=== PATIENT | female | born 1985 | race Caucasian/White ===

== ENCOUNTER 2018-05-27 12:47 | Observation (INO) ==
[2018-05-27] MEDS ORDERED: Morphine Inj 4 MG/ML Vial IV.PUSH ONE ×2 (14:45→21:39)
[2018-05-27] MEDS ORDERED: Vancomycin Inj 1,000 MG in Sodium Chlor 0.9% Inj 250 ML IV.SIG ONE (14:45)
--- NOTE | 2018-05-27 14:48 | ED ---
HPI General Chief complaint: Skin/Abscess/Foreign Body Stated complaint: skin Time Seen by Provider: 05/27/18 14:18 History of Present Illness HPI narrative: 32-year-old female with a history of IV drug use presents to the emergency department for evaluation of fever, body aches and right forearm abscess. Patient states that she has had fever and body aches for the past 5 days. States that today when she woke up her fever was 102.7 F and she took aspirin at around 10 AM. States that she has had the abscess for the last 3 days which has been getting larger and more painful over the last 3 days. States that today the swelling significantly worsened and she is having pain with movement of her elbow. She states she has had a history of septic arthritis in the past and is concerned that this is happening again. Aggravating factors include movement, palpation and IV drug use. Denies any alleviating factors. Denies . No other complaints. Related Data Home Medications Medication Instructions Recorded Confirmed No Known Home Medications 05/27/18 05/27/18 Allergies Allergy/AdvReac Type Severity Reaction Status Date / Time propoxyphene Allergy Severe Hives Verified 05/27/18 13:29 Review of Systems ROS: all other systems reviewed are negative PMFSH Medical History Medical History No significant past medical history (Acute) Surgical History Surgical History History of (Acute) History of appendectomy (Acute) History of cholecystectomy (Acute) History of incision and drainage (Acute) History of right oophorectomy (Acute) History of salpingo-oophorectomy (Acute) Family History Family History Other Coronary artery disease Diabetes mellitus Social History Social History Substance History: Active Abuse Second Hand Smoke Exposure: Yes Smoking Status: Heavy tobacco smoker Tobacco Type: Cigarettes How Often Do You Have a Drink Containing Alcohol: Never Recent Travel in [facility] within the Last 8 Weeks: No Recent Out of Country Travel within the Last 8 Weeks: No Substance Abuse Detail Heroin: Substance Use Status: Early Remission Route Used Substance Abuse: Intravenously Immunization History Tetanus Immunization: <5 Years Exam Narrative Exam Narrative: GENERAL: Well-nourished and well-developed pleasant patient in no acute distress who is nontoxic appearing. SKIN: Warm and dry. HEAD: Normocephalic and atraumatic. EYES: No injection, drainage, or hyphema noted. PERRLA. EOMI. ENT: No nasal drainage noted. Oropharynx is clear. NECK: Supple and the trachea is midline. CARDIOVASCULAR: Regular rate and rhythm. RESPIRATORY: Breath sounds are equal bilaterally with no accessory muscle use, wheezing, rhonchi, or crackles. GASTROINTESTINAL: Abdomen is soft, non-tender, and nondistended. No hepatosplenomegaly. MUSCULOSKELETAL: Large fluctuant mass to right proximal forearm with erythema extending to mid forearm and to elbow. Tenderness to palpation of right elbow with painful range of motion. No lymphangitis. No obvious deformities, cyanosis, or ecchymosis is present throughout the upper and lower extremities. Patient has full range of motion in all other extremities without any signs of neurovascular compromise. Distal pulses are 2+ throughout. NEUROLOGICAL: Awake, alert, and oriented. Normal speech and gait. Cranial nerves are grossly intact. Course Initial Documented Vital Signs Temperature 98.4 F 05/27/18 13:10 Pulse Rate 98 H 05/27/18 13:10 Respiratory Rate 18 05/27/18 13:10 Blood Pressure 115/72 05/27/18 13:10 Pulse Oximetry 99 05/27/18 13:10 Last Documented Vital Signs Temperature 99.1 F 05/28/18 16:00 Pulse Rate 65 05/28/18 16:00 Respiratory Rate 16 05/28/18 16:00 Blood Pressure 114/58 L 05/28/18 16:00 Pulse Oximetry 96 05/28/18 16:00 Medical Decision Making [facility] Narrative Medical decision making narrative: 32-year-old female with a history of IV drug use presents to the emergency department for evaluation of right forearm/elbow abscess and fevers for 5 days. Patient is afebrile here in the emergency department. She is tachycardic with a heart rate of 98 bpm. Patient is a large area of abscess and cellulitis to the right forearm. IV access obtained, labs have been drawn and sent. Patient placed on cardiac telemetry and pulse oximetry monitoring. Patient administered 1 g IV vancomycin, morphine 4 mg IV and Zofran 4 mg IV. Patient initially seen in fast track pod and transferred care to medical pod. I spoke with Dr. Tilley who accepts care of patient in transfer. Patient had been signed out to me by PRAFUL, please see PA notes for further details. Lab work does indicate some underlying sepsis. IV antibiotics have been given. CAT scan is showing a large deep abscess in the arm. Case was discussed with hand, Dr. Currie. Case was also discussed with Dr. Hughes for admission. Medical Screen Exam Complete: Yes Emergency Medical Condition: Yes Differential Diagnosis Differential Diagnosis: Sepsis versus abscess versus septic joint versus IV drug use Lab Data Lab results reviewed: Yes I reviewed the patient's lab results. Result diagrams: 05/28/18 06:35 05/28/18 06:35 POC Results POC Urine Results Negative Lab Results 05/27/18 05/27/18 05/27/18 Range/Units 15:50 15:50 15:50 WBC 10.2 (4.0-11.0) th/mm3 RBC 4.35 (4.00-5.30) mil/mm3 Hgb 11.6 (11.6-15.3) gm/dL Hct 34.1 L (35.0-46.0) % MCV 78.3 L (80.0-100.0) fL MCH 26.7 L (27.0-34.0) pg MCHC 34.1 (32.0-36.0) % RDW 17.1 (11.6-17.2) % Plt Count 167 (150-450) th/mm3 MPV 8.7 (7.0-11.0) fL Prelim Diff (Auto) Neut % (Auto) 75.9 H (16.0-70.0) % Lymph % (Auto) 15.9 (9.0-44.0) % [place] % (Auto) 7.1 (0.0-8.0) % Eos % (Auto) 0.1 (0.0-4.0) % Baso % (Auto) 1.0 (0.0-2.0) % Neut # (Auto) 7.8 H (1.8-7.7) th/mm3 Lymph # (Auto) 1.6 (1.0-4.8) th/mm3 [place] # (Auto) 0.7 (0.0-0.9) th/mm3 Eos # (Auto) 0.0 (0.0-0.4) th/mm3 Baso # (Auto) 0.1 (0.0-0.2) th/mm3 WBC Differential . Diff Scan Differential Comment Auto diff final Platelet Estimate (Normal) Platelet Morphology (Normal) ESR (0-20) mm/hr Sodium 136 (136-145) meq/L Potassium 4.7 (3.5-5.1) meq/L Chloride 103 (98-107) meq/L Carbon Dioxide 28.0 (21.0-32.0) meq/L Anion Gap 5 (5-15) meq/L BUN 7 (7-18) mg/dL Creatinine 0.78 (0.50-1.00) mg/dL Estimated GFR 85 L (>89) mL/min Random Glucose 87 (74-106) mg/dL Lactic Acid 0.9 (0.4-2.0) mmol/L Calcium 8.3 L (8.5-10.1) mg/dL Total Bilirubin 0.8 (0.2-1.0) mg/dL AST 25 (15-37) U/L ALT 13 (10-53) U/L Alkaline Phosphatase 71 (45-117) U/L C-Reactive Protein 11.30 H (0.00-0.30) mg/dL Total Protein 7.7 (6.4-8.2) g/dL Albumin 3.2 L (3.4-5.0) g/dL 05/27/18 05/28/18 05/28/18 Range/Units 15:50 06:35 06:35 WBC 7.2 (4.0-11.0) th/mm3 RBC 3.89 L (4.00-5.30) mil/mm3 Hgb 10.3 L (11.6-15.3) gm/dL Hct 31.2 L (35.0-46.0) % MCV 80.3 (80.0-100.0) fL MCH 26.5 L (27.0-34.0) pg MCHC 33.0 (32.0-36.0) % RDW 17.0 (11.6-17.2) % Plt Count 150 (150-450) th/mm3 MPV 8.8 (7.0-11.0) fL Prelim Diff (Auto) Slide review pending Neut % (Auto) 73.8 H (16.0-70.0) % Lymph % (Auto) 15.1 (9.0-44.0) % [place] % (Auto) 10.3 H (0.0-8.0) % Eos % (Auto) 0.5 (0.0-4.0) % Baso % (Auto) 0.3 (0.0-2.0) % Neut # (Auto) 5.3 (1.8-7.7) th/mm3 Lymph # (Auto) 1.1 (1.0-4.8) th/mm3 [place] # (Auto) 0.7 (0.0-0.9) th/mm3 Eos # (Auto) 0.0 (0.0-0.4) th/mm3 Baso # (Auto) 0.0 (0.0-0.2) th/mm3 WBC Differential . Diff Scan Auto diff confirmed Differential Comment . Platelet Estimate Normal (Normal) Platelet Morphology Enlarged H (Normal) ESR 57 H (0-20) mm/hr Sodium 139 (136-145) meq/L Potassium 3.9 D (3.5-5.1) meq/L Chloride 107 (98-107) meq/L Carbon Dioxide 24.4 (21.0-32.0) meq/L Anion Gap 8 (5-15) meq/L BUN 13 (7-18) mg/dL Creatinine 0.83 (0.50-1.00) mg/dL Estimated GFR 79 L (>89) mL/min Random Glucose 104 (74-106) mg/dL Lactic Acid (0.4-2.0) mmol/L Calcium 7.7 L (8.5-10.1) mg/dL Total Bilirubin (0.2-1.0) mg/dL AST (15-37) U/L ALT (10-53) U/L Alkaline Phosphatase (45-117) U/L C-Reactive Protein (0.00-0.30) mg/dL Total Protein (6.4-8.2) g/dL Albumin (3.4-5.0) g/dL Imaging Data Attestation: I personally reviewed and interpreted this imaging study as follows : Radiologist's impression: Chest X-Ray 05/27/18 14:45 CONCLUSION: Negative examination. Elbow CT 05/27/18 14:45 CONCLUSION: 1. Complex fluid collection but represent an abscess in the proximal medial soft tissues of the forearm. 2. No areas of bony destruction are seen. 3. Small 0.5 cm loose body in the elbow joint. Discharge Plan Discharge Disposition Patient Disposition: ED Admit(ED Internal Use Only) Discharge Condition Condition: Stable Discharge Order Discharge Orders: ED Use Only Admit Order (Routine); Ordered 05/27/18 Ordered By: Basim Tilley Discharge Details Anticipated Discharge Date: 05/27/18 Diagnosis: Abscess of elbow, Cellulitis of arm, right Physicians Team ED Provider: Basim Tilley ED Midlevel Provider: Celina Marquez Primary Care Provider: Primary Care Patrick,Addie Attending Provider: Carol Goff Other Providers: Donaldo Currie Status ED Status: Left Department Discharge Information Discharge Date/Time: 05/27/18 22:14
--- NOTE | 2018-05-27 15:35 | XR ---
EXAM DATE: 05/27/2018 3:31 PM EST AGE/SEX: 32 years / Female INDICATIONS: Fever. CLINICAL DATA: This is the patient's initial encounter. Patient reports that signs and symptoms have been present for 1 day and indicates a pain score of 6/10. MEDICAL/SURGICAL HISTORY: Hypertension. . Appendectomy. Cholecystectomy. section.Right oopherectomy COMPARISON: [facility] [place], CHEST SINGLE AP, 06/26/2015. . FINDINGS: A single AP view of the chest demonstrates the lungs to be symmetrically aerated without evidence of mass, infiltrate or effusion. The cardiomediastinal contours are unremarkable. Osseous structures a re intact. CONCLUSION: Negative examination. Electronically signed by: Abundio Vila MD Board Certified Radiologist 05/27/2018 3:34 PM EST
[2018-05-27 16:22] LABS: Baso # (Auto) 0.1 th/mm3 (0.0-0.2); Eos % (Auto) 0.1 % (0.0-4.0); Hematocrit 34.1 % (35.0-46.0); Hemoglobin 11.6 gm/dL (11.6-15.3); Lymph # (Auto) 1.6 th/mm3 (1.0-4.8); Lymph % (Auto) 15.9 % (9.0-44.0); Mean Corpuscular HGB Conc 34.1 % (32.0-36.0); Mean Corpuscular Hemoglobin 26.7 pg (27.0-34.0); Mean Corpuscular Volume 78.3 fL (80.0-100.0); Mean Platelet Volume 8.7 fL (7.0-11.0); Mono # (Auto) 0.7 th/mm3 (0.0-0.9); Mono % (Auto) 7.1 % (0.0-8.0); Neut # (Auto) 7.8 th/mm3 (1.8-7.7); Neut % (Auto) 75.9 % (16.0-70.0); Platelet Count 167 th/mm3 (150-450); Red Blood Count 4.35 mil/mm3 (4.00-5.30); Red Cell Distribution Width 17.1 % (11.6-17.2); White Blood Count 10.2 th/mm3 (4.0-11.0)
[2018-05-27 16:39] LABS: Alanine Aminotransferase 13 U/L (10-53); Albumin 3.2 g/dL (3.4-5.0); Alkaline Phosphatase 71 U/L (45-117); Anion Gap 5 meq/L (5-15); Aspartate Aminotransferase 25 U/L (15-37); Blood Urea Nitrogen 7 mg/dL (7-18); Calcium 8.3 mg/dL (8.5-10.1); Chloride 103 meq/L (98-107); Glomerular Filtration Rate 85 mL/min (>89); Glucose,Random 87 mg/dL (74-106); Sodium 136 meq/L (136-145); Total Protein 7.7 g/dL (6.4-8.2)
[2018-05-27 16:40] LABS: Potassium 4.7 meq/L (3.5-5.1)
--- NOTE | 2018-05-27 18:26 | CT ---
EXAM DATE: 05/27/2018 6:03 PM EST AGE/SEX: 32 years / Female INDICATIONS: Right elbow swelling and redness CLINICAL DATA: This is the patient's initial encounter. Patient reports that signs and symptoms have been present for 1 day and indicates a pain score of 4/10. MEDICAL/SURGICAL HISTORY: Cardiovascular disease. None. RADIATION DOSE: 21.11 CTDI (mGy) COMPARISON: . TECHNIQUE: Multiple contiguous axial images were acquired using a multirow detector CT scanner after intravenous administration of 71 ml Omnipaque 350 (iohexol) nonionic water-soluble contrast as a si ngle exam dose.. Multiplanar reconstruction was performed in the sagittal and coronal planes. Using automated exposure control and adjustment of the mA and/or kV according to patient size, radiation d ose was kept as low as reasonably achievable to obtain optimal diagnostic quality images. DICOM form at image data is available electronically for review and comparison. FINDINGS: Bones: The bony structures about the elbow are in normal alignment. The distal humerus and proximal radius and ulna are intact. No fracture is seen. Joints: There is a small 0.5 cm small bony density seen posterior to the distal humerus and the olec ranon fossa region. Soft Tissues: There is a multiloculated fluid collection seen in the proximal medial soft tissues of the upper arm measuring approximately 3.2 x 4.0 by 6.7 cm in length. There is induration and edema t hroughout the subcutaneous fat at the proximal forearm and elbow region. Other: No foreign bodies seen. Post Contrast: No abnormal areas of enhancement are seen in the marrow or soft tissues. CONCLUSION: 1. Complex fluid collection but represent an abscess in the proximal medial soft tissues of the fore arm. 2. No areas of bony destruction are seen. 3. Small 0.5 cm loose body in the elbow joint. Electronically signed by: Jasper Murray MD Board Certified Radiologist 05/27/2018 6:24 PM EST
[2018-05-27] MEDS ORDERED: Vancomycin Consult Pharmacy OTHER PRN (20:20)
[2018-05-27] MEDS ORDERED: Acetaminophen 325 MG Tablet PO PRN (20:22)
[2018-05-27] MEDS ORDERED: Bisacodyl 10 MG Supp RECTAL PRN (20:22)
[2018-05-27] MEDS: Sod Chloride 0.9% Inj 1,000 ML IV.CONT SCH (21:05)
[2018-05-27] MEDS: Piperacil/Tazo 3.375 GM Premix 3.375 GM/50 ML PIGGYBACK IV.SIG SCH (21:06)
--- NOTE | 2018-05-27 21:12 | P.HP ---
History of Present Illness Service: [facility] Primary Care Physician: No Primary Care Physician History of Present Illness: 32-year-old female with a past medical history significant for IV drug abuse ( last use on 03/30/18) and a history of abscesses presents to the emergency department for the evaluation of a right forearm/elbow abscess. The patient reports she has had a fever for approximately 1 week and has been feeling weak and fatigued. Approximately 3 days ago she developed right elbow and forearm pain and an abscess began to form. The area is large, indurated and warm to the touch. She denies any chest pain or shortness of breath. No abdominal pain. No nausea/vomiting/diarrhea. No focal neurologic deficits. Review of Systems All other systems reviewed negative except as stated in HPI [facility] - History History Provided By: Patient - Medical History Medical History: Medical History (Last Updated 05/27/18 @ 21:05 by Corie Hughes MD) No significant past medical history - Surgical History Surgical History: Surgical History (Last Updated 05/27/18 @ 21:06 by Corie Hughes MD) History of History of appendectomy History of cholecystectomy History of incision and drainage History of right oophorectomy History of salpingo-oophorectomy - Family History Family History: Family History (Last Updated 05/27/18 @ 21:06 by Corie Hughes MD) Other Coronary artery disease Diabetes mellitus - Social History I have reviewed the patient's Social History: Yes - Tobacco History Tobacco Use In Past 30 Days: Yes Smoking Status: Current every day smoker Tobacco Type: Cigarettes - Alcohol History How Often Do You Have a Drink Containing Alcohol: Never - Substance Use History Substance History: Past History - Substance Use Type Heroin Status: Early Remission Route Used: Intravenously - Travel History Recent Travel in the [place] Within the Last 8 Weeks: No Recent Travel Out of the Country Within the Last 8 Weeks: No - Immunization History Tetanus Immunization: <5 Years Medications and Allergies Active Medications: Active Medications Acetaminophen (Tylenol) 650 mg PO Q4H PRN PRN Reason: Temp > 100.4 Al Hydroxide/Mg Hydroxide (Milk Of Magnesia Liq) 30 ml PO Q12H PRN PRN Reason: Mild Constipation Bisacodyl (Dulcolax Supp) 10 mg RECTAL DAILY PRN PRN Reason: SEVERE CONSITIPATION Sodium Chloride (Ns Inj) 1,000 mls @ 100 mls/hr IV.CONT .Q10H ADAIR Piperacillin/Tazobactam/Dextrose (Zosyn 3.375 Gm Premix) 3.375 gm in 50 mls @ 100 mls/hr IV.SIG Q6H ADAIR Vancomycin HCl 2,000 mg/ (Sodium Chloride) 520 mls @ 250 mls/hr IV.SIG Q12H ADAIR Lactulose (Lactulose Liq) 30 ml PO DAILY PRN PRN Reason: SEVERE CONSITIPATION Miscellaneous Information ([facility] Ordered Lab Info) 0 each OTHER ONCE ONE Stop: 05/29/18 00:46 Ondansetron HCl (Zofran Inj) 4 mg IV.PUSH Q6H PRN PRN Reason: NAUSEA OR VOMITING Pharmacy Profile Note (Vancomycin Consult Pharmacy) 1 each OTHER UNSCH PRN PRN Reason: Pharmacy to dose Sennosides (Senokot) 17.2 mg PO Q12H PRN PRN Reason: Moderate Constipation Sodium Chloride (Ns Flush) 2 ml IV.FLUSH BID ADAIR Sodium Chloride (Ns Flush) 2 ml IV.FLUSH PRN PRN PRN Reason: FLUSH AFTER USING IV ACCESS Allergies Allergy/AdvReac Type Severity Reaction Status Date / Time propoxyphene Allergy Severe Hives Verified 05/27/18 13:29 Home Medications Medication Instructions Recorded Confirmed Type No Known Home Medications 05/27/18 05/27/18 History Exam Vital signs: Vital Signs 05/27/18 13:10 05/27/18 18:11 05/27/18 18:12 Temperature 98.4 F Pulse Rate 98 H 90 Respiratory Rate 18 Blood Pressure 115/72 Pulse Oximetry 99 93 L 05/27/18 18:34 Temperature Pulse Rate 84 Respiratory Rate 18 Blood Pressure 125/57 L Pulse Oximetry 94 L Intake & Output 05/27/18 05/27/18 05/28/18 06:59 18:59 06:59 Intake Total 250 / 250 Balance 250 / 250 Weight 97.522 kg Intake: IV 250 / 250 Vancomycin Inj 1,000 MG In NS 250 / 250 Inj 250 ML @ 250 mls/hr IV.SIG ONCE ONE Rx#:[id number] Narrative: Gen.: No acute distress Head: Normocephalic. Atraumatic. EENT: Pupils equal round and reactive to light. Nose without drainage. Airway intact. Throat without injection. Cardiovascular: Regular rate and rhythm. No murmurs, rubs or gallops. Respiratory: Lungs clear to auscultation bilaterally. No wheezes or rhonchi. Abdomen: Soft, nontender, nondistended. No peritoneal signs. Musculoskeletal: No gross deformities. No edema. Skin: 6 x 4 cm erythematous and indurated area that is fluctuant and warm to the touch Neuro: Sensory and motor grossly intact. Cranial nerves II through XII grossly intact. Results - Labs CBC & Chem 7: 05/27/18 15:50 05/27/18 15:50 Labs: Laboratory Results - last 24 hr 05/27/18 05/27/18 05/27/18 15:50 15:50 15:50 WBC 10.2 RBC 4.35 Hgb 11.6 Hct 34.1 L MCV 78.3 L MCH 26.7 L MCHC 34.1 RDW 17.1 Plt Count 167 MPV 8.7 Neut % (Auto) 75.9 H Lymph % (Auto) 15.9 [place] % (Auto) 7.1 Eos % (Auto) 0.1 Baso % (Auto) 1.0 Neut # (Auto) 7.8 H Lymph # (Auto) 1.6 [place] # (Auto) 0.7 Eos # (Auto) 0.0 Baso # (Auto) 0.1 WBC Differential . Differential Comment Auto diff final ESR Sodium 136 Potassium 4.7 Chloride 103 Carbon Dioxide 28.0 Anion Gap 5 BUN 7 Creatinine 0.78 Estimated GFR 85 L Random Glucose 87 Lactic Acid 0.9 Calcium 8.3 L Total Bilirubin 0.8 AST 25 ALT 13 Alkaline Phosphatase 71 C-Reactive Protein 11.30 H Total Protein 7.7 Albumin 3.2 L 05/27/18 15:50 WBC RBC Hgb Hct MCV MCH MCHC RDW Plt Count MPV Neut % (Auto) Lymph % (Auto) [place] % (Auto) Eos % (Auto) Baso % (Auto) Neut # (Auto) Lymph # (Auto) [place] # (Auto) Eos # (Auto) Baso # (Auto) WBC Differential Differential Comment ESR 57 H Sodium Potassium Chloride Carbon Dioxide Anion Gap BUN Creatinine Estimated GFR Random Glucose Lactic Acid Calcium Total Bilirubin AST ALT Alkaline Phosphatase C-Reactive Protein Total Protein Albumin - Imaging Impressions Chest X-Ray 12/19/18 14:45 CONCLUSION: Negative examination. Elbow CT 05/27/18 14:45 CONCLUSION: 1. Complex fluid collection but represent an abscess in the proximal medial soft tissues of the forearm. 2. No areas of bony destruction are seen. 3. Small 0.5 cm loose body in the elbow joint. Caprini VTE Risk Assessment Caprini VTE Risk Assessment: No/Low Risk (score <= 1) Caprini Risk Assessment Model: Point Value = 1 Point Value = 2 Point Value = 3 Point Value = 5 Age 41-60 Minor surgery BMI > 25 kg/m2 Swollen legs Varicose veins or History of unexplained or recurrent spontaneous Oral contraceptives or hormone replacement Sepsis (< 1 month) Serious lung disease, including pneumonia (< 1 month) Abnormal pulmonary function Acute myocardial infarction Congestive heart failure (< 1 month) History of inflammatory bowel disease Medical patient at bed rest Age 61-74 Arthroscopic surgery Major open surgery (> 45 min) Laparoscopic surgery (> 45 min) Malignancy Confined to bed (> 72 hours) Immobilizing plaster cast Central venous access Age >= 75 History of VTE Family history of VTE Factor V Leiden Prothrombin [id number] Lupus anticoagulant Anticardiolipin antibodies Elevated serum homocysteine Heparin-induced thrombocytopenia Other congenital or acquired thrombophilia Stroke (< 1 month) Elective arthroplasty Hip, pelvis, or leg fracture Acute spinal cord injury (< 1 month) Prophylaxis Regimen: Total Risk Factor Score Risk Level Prophylaxis Regimen 0-1 Low Early ambulation 2 Moderate Order ONE of the following: *Sequential Compression Device (SCD) *Heparin 5000 units SQ BID 3-4 Higher Order ONE of the following medications: *Heparin 5000 units SQ TID *Enoxaparin/Lovenox 40 mg SQ daily (WT < 150 kg, CrCl > 30 mL/min) *Enoxaparin/Lovenox 30 mg SQ daily (WT < 150 kg, CrCl > 10-29 mL/min) *Enoxaparin/Lovenox 30 mg SQ BID (WT < 150 kg, CrCl > 30 mL/min) AND/OR *Sequential Compression Device (SCD) 5 or more Highest Order ONE of the following medications: *Heparin 5000 units SQ TID (Preferred with Epidurals) *Enoxaparin/Lovenox 40 mg SQ daily (WT < 150 kg, CrCl > 30 mL/min) *Enoxaparin/Lovenox 30 mg SQ daily (WT < 150 kg, CrCl > 10-29 mL/min) *Enoxaparin/Lovenox 30 mg SQ BID (WT < 150 kg, CrCl > 30 mL/min) AND *Sequential Compression Device (SCD) Assessment and Plan - Plan Assessment/plan: 1. Right forearm abscess Elbow CT significant for complex fluid collection in the proximal medial soft tissues of the forearm without areas of bony destruction Hand surgery consulted, appreciate assistance Plan for I&D in the emergency department Vancomycin/Zosyn Cultures pending 2. History of IV drug abuse Per patient, last use of IV heroin was 03/30/18 Caution with narcotic medications Toradol for pain FEN N.p.o. Electrolytes: Monitor and replete as needed NS at 100 cc/hour
--- NOTE | 2018-05-27 21:43 | P.CON ---
History of Present Illness Service: Hand Surgery Consult date: 05/20/18 Reason for Consult: Right forearm abscess Primary Care Provider: No Primary Care Physician Chief Complaint: Right forearm abscess History of Present Illness: 32-year-old female who presented with a several day history of worsening right forearm abscess. Patient reports that she has a history of IV drug abuse, and that over the last several days to a week, the right forearm is been getting progressively larger, more red, more painful, more swollen. Except as noted in the HPI review of systems negative to presenting complaint Family history noncontributory to presenting complaint Allergies listed as propoxyphene Medication list reviewed Social history positive for IVDA Medical history/surgical history History of History of appendectomy History of cholecystectomy History of incision and drainage History of right oophorectomy History of salpingo-oophorectomy PMFSH - History History Provided By: Patient - Medical History Medical History: Medical History (Last Updated 05/27/18 @ 21:05 by Corie Hughes MD) No significant past medical history - Surgical History Surgical History: Surgical History (Last Updated 05/27/18 @ 21:06 by Corie Hughes MD) History of History of appendectomy History of cholecystectomy History of incision and drainage History of right oophorectomy History of salpingo-oophorectomy - Family History Family History: Family History (Last Updated 05/27/18 @ 21:06 by Corie Hughes MD) Other Coronary artery disease Diabetes mellitus - Tobacco History Tobacco Use In Past 30 Days: Yes Smoking Status: Current every day smoker Tobacco Type: Cigarettes - Alcohol History How Often Do You Have a Drink Containing Alcohol: Never - Substance Use History Substance History: Past History - Substance Use Type Heroin Status: Early Remission Route Used: Intravenously - Travel History Recent Travel in the [place] Within the Last 8 Weeks: No Recent Travel Out of the Country Within the Last 8 Weeks: No - Immunization History Tetanus Immunization: <5 Years Medications and Allergies Active Medications: Active Medications Acetaminophen (Tylenol) 650 mg PO Q4H PRN PRN Reason: Temp > 100.4 Al Hydroxide/Mg Hydroxide (Milk Of Magnesia Liq) 30 ml PO Q12H PRN PRN Reason: Mild Constipation Bisacodyl (Dulcolax Supp) 10 mg RECTAL DAILY PRN PRN Reason: SEVERE CONSITIPATION Sodium Chloride (Ns Inj) 1,000 mls @ 100 mls/hr IV.CONT .Q10H [facility] Last Admin: 05/27/18 21:05 Dose: 100 mls/hr Piperacillin/Tazobactam/Dextrose (Zosyn 3.375 Gm Premix) 3.375 gm in 50 mls @ 100 mls/hr IV.SIG Q6H [facility] Last Admin: 05/27/18 21:06 Dose: 100 mls/hr Vancomycin HCl 2,000 mg/ (Sodium Chloride) 520 mls @ 250 mls/hr IV.SIG Q12H [facility] Ketorolac Tromethamine (Toradol Inj) 30 mg IV.PUSH Q6H PRN PRN Reason: pain 6-10 Stop: 06/01/18 21:10 Lactulose (Lactulose Liq) 30 ml PO DAILY PRN PRN Reason: SEVERE CONSITIPATION Miscellaneous Information ([facility] Ordered Lab Info) 0 each OTHER ONCE ONE Stop: 05/29/18 00:46 Ondansetron HCl (Zofran Inj) 4 mg IV.PUSH Q6H PRN PRN Reason: NAUSEA OR VOMITING Pharmacy Profile Note (Vancomycin Consult Pharmacy) 1 each OTHER UNSCH PRN PRN Reason: Pharmacy to dose Sennosides (Senokot) 17.2 mg PO Q12H PRN PRN Reason: Moderate Constipation Sodium Chloride (Ns Flush) 2 ml IV.FLUSH BID [facility] Last Admin: 05/27/18 21:05 Dose: Not Given Sodium Chloride (Ns Flush) 2 ml IV.FLUSH PRN PRN PRN Reason: FLUSH AFTER USING IV ACCESS Zolpidem Tartrate (Ambien) 10 mg PO HS PRN PRN Reason: insomnia Allergies Allergy/AdvReac Type Severity Reaction Status Date / Time propoxyphene Allergy Severe Hives Verified 05/27/18 13:29 Home Medications Medication Instructions Recorded Confirmed Type No Known Home Medications 05/27/18 05/27/18 History Physical Exam Vital signs: Vital Signs 05/27/18 13:10 05/27/18 18:11 05/27/18 18:12 Temperature 98.4 F Pulse Rate 98 H 90 Respiratory Rate 18 Blood Pressure 115/72 Pulse Oximetry 99 93 L 05/27/18 18:34 Temperature Pulse Rate 84 Respiratory Rate 18 Blood Pressure 125/57 L Pulse Oximetry 94 L Intake & Output 05/27/18 05/27/18 05/28/18 06:59 18:59 06:59 Intake Total 250 / 250 Balance 250 / 250 Weight 97.522 kg Intake: IV 250 / 250 Vancomycin Inj 1,000 MG In NS 250 / 250 Inj 250 ML @ 250 mls/hr IV.SIG ONCE ONE Rx#:[id number] Narrative: Patient appears anxious, alert and oriented x3, moist mucous membranes PERRLA skin without rash respirations nonlabored gait within normal limits digits warm well perfused Right proximal volar forearm with over 6 cm area of fluctuance surrounded by erythema, blanching, extending to her mid forearm and mid upper arm Exquisitely tender Elbow CT images personally reviewed by me showing a roughly 6 cm area of fluid collection consistent with abscess Results - Labs CBC & Chem 7: 05/28/18 06:35 05/28/18 06:35 Labs: Laboratory Results - last 24 hr 05/27/18 05/27/18 05/27/18 15:50 15:50 15:50 WBC 10.2 RBC 4.35 Hgb 11.6 Hct 34.1 L MCV 78.3 L MCH 26.7 L MCHC 34.1 RDW 17.1 Plt Count 167 MPV 8.7 Neut % (Auto) 75.9 H Lymph % (Auto) 15.9 [place] % (Auto) 7.1 Eos % (Auto) 0.1 Baso % (Auto) 1.0 Neut # (Auto) 7.8 H Lymph # (Auto) 1.6 [place] # (Auto) 0.7 Eos # (Auto) 0.0 Baso # (Auto) 0.1 WBC Differential . Differential Comment Auto diff final ESR Sodium 136 Potassium 4.7 Chloride 103 Carbon Dioxide 28.0 Anion Gap 5 BUN 7 Creatinine 0.78 Estimated GFR 85 L Random Glucose 87 Lactic Acid 0.9 Calcium 8.3 L Total Bilirubin 0.8 AST 25 ALT 13 Alkaline Phosphatase 71 C-Reactive Protein 11.30 H Total Protein 7.7 Albumin 3.2 L 05/27/18 15:50 WBC RBC Hgb Hct MCV MCH MCHC RDW Plt Count MPV Neut % (Auto) Lymph % (Auto) [place] % (Auto) Eos % (Auto) Baso % (Auto) Neut # (Auto) Lymph # (Auto) [place] # (Auto) Eos # (Auto) Baso # (Auto) WBC Differential Differential Comment ESR 57 H Sodium Potassium Chloride Carbon Dioxide Anion Gap BUN Creatinine Estimated GFR Random Glucose Lactic Acid Calcium Total Bilirubin AST ALT Alkaline Phosphatase C-Reactive Protein Total Protein Albumin - Imaging Impressions Chest X-Ray 05/27/18 14:45 CONCLUSION: Negative examination. Elbow CT 05/27/18 14:45 CONCLUSION: 1. Complex fluid collection but represent an abscess in the proximal medial soft tissues of the forearm. 2. No areas of bony destruction are seen. 3. Small 0.5 cm loose body in the elbow joint. Assessment and Plan - Assessment (1) Abscess of forearm, right Code(s): L02.413 - Cutaneous abscess of right upper limb Status: Acute - Plan 32-year-old female with severe right upper extremity cellulitis and large abscess extending to the deep fascia Risk benefits alternative treatments discussed All questions answered and the patient expressed understanding Patient elected to assume the risks of incision and drainage of the above abscess Informed consent obtained Under sterile conditions, at the bedside, 50 mL of 1% lidocaine with epinephrine was instilled in a field block A 4 cm longitudinally oriented incision was made through the skin over the area of fluctuance Blunt superficial spreading with suture scissors allowed the abscess cavity to be entered just deep to dermis All septations lysed with gentle digital exploration Cultures were sent x2 All purulence was expressed Betadine soaked gauze was instilled into the abscess cavity and covered with a dry dressing Well-tolerated Nursing instructed that above packing to be removed the following morning, and replaced with an iodoform wick change daily Antibiotics per primary Please call with questions
[2018-05-27] MEDS: Ketorolac Inj 30 MG/ML (IVP) Vial IV.PUSH PRN (22:55)
[2018-05-28] MEDS: Vancomycin Inj 2,000 MG in Sodium Chlor 0.9% Inj 500 ML IV.SIG SCH ×2 (00:44→13:28)
[2018-05-28] MEDS: Piperacil/Tazo 3.375 GM Premix 3.375 GM/50 ML PIGGYBACK IV.SIG SCH ×4 (03:02→20:58)
[2018-05-28] MEDS: Sod Chloride 0.9% Inj 1,000 ML IV.CONT SCH ×3 (03:35→18:30)
[2018-05-28 07:33] LABS: Baso % (Auto) 0.3 % (0.0-2.0); Eos % (Auto) 0.5 % (0.0-4.0); Hematocrit 31.2 % (35.0-46.0); Hemoglobin 10.3 gm/dL (11.6-15.3); Lymph # (Auto) 1.1 th/mm3 (1.0-4.8); Lymph % (Auto) 15.1 % (9.0-44.0); Mean Corpuscular Hemoglobin 26.5 pg (27.0-34.0); Mean Corpuscular Volume 80.3 fL (80.0-100.0); Mean Platelet Volume 8.8 fL (7.0-11.0); Mono # (Auto) 0.7 th/mm3 (0.0-0.9); Mono % (Auto) 10.3 % (0.0-8.0); Neut # (Auto) 5.3 th/mm3 (1.8-7.7); Neut % (Auto) 73.8 % (16.0-70.0); Red Blood Count 3.89 mil/mm3 (4.00-5.30); White Blood Count 7.2 th/mm3 (4.0-11.0)
[2018-05-28 07:49] LABS: Calcium 7.7 mg/dL (8.5-10.1); Carbon Dioxide 24.4 meq/L (21.0-32.0); Potassium 3.9 meq/L (3.5-5.1)
[2018-05-28 08:19] LABS: Platelet Count 150 th/mm3 (150-450)
[2018-05-28 08:20] LABS: Platelet Estimate Normal (Normal)
[2018-05-28] MEDS: Ketorolac Inj 30 MG/ML (IVP) Vial IV.PUSH PRN (08:37)
--- NOTE | 2018-05-28 10:46 | P.PNIM ---
Subjective Interval history: 32yo f w ivda admitted with cellulitis and RUE abscess s/p I/ D in ER pt seen and examined doing ok, co pain , and nausea, no sob, no cp Physical Exam Vital signs: Last Vital Signs Temp 100.4 F H 05/28/18 07:41 Pulse 86 05/28/18 07:41 Resp 18 05/28/18 07:41 BP 127/71 05/28/18 07:41 Pulse Ox 95 05/28/18 07:41 Intake & Output 05/26/18 05/27/18 05/28/18 05/29/18 06:59 06:59 06:59 06:59 Intake Total 1870 / 1870 1050 / 1050 Balance 1870 / 1870 1050 / 1050 Weight 97.522 kg AAox3 nad heart s1s2 reg lungs clear no wrr abd soft nondt pos bs ext R elbow w bandage, edema, drainage Results Labs CBC & Chem 7: 05/28/18 06:35 05/28/18 06:35 Labs: Microbiology 05/27/18 22:30 Abscess - Arm Gram Stain - Final Imaging Imaging: Impressions Chest X-Ray 05/27/18 14:45 CONCLUSION: Negative examination. Elbow CT 05/27/18 14:45 CONCLUSION: 1. Complex fluid collection but represent an abscess in the proximal medial soft tissues of the forearm. 2. No areas of bony destruction are seen. 3. Small 0.5 cm loose body in the elbow joint. Assessment and Plan Plan CELLULITIS w ABSCESS - cont iv abx, surgical consult appreciated, pain control, elevation IVDA hx counseling referral, symptomatic tx of wd symptoms supportive NICOTINE addiction and wd - nicoderm, breastfeeding peer counselor to stop NC ANEMIA - dilutional no bleeding noted monitor. dvt prophylaxis - heparin sq disp - home pending culture results Progress Note: Quality VTE Deep Vein Thrombosis/Pulmonary Embolism Present on Admission: No
[2018-05-28] MEDS: Ketorolac Inj 30 MG/ML (IVP) Vial IV.PUSH SCH ×2 (13:28→16:13)
--- NOTE | 2018-05-28 17:51 | ECG ---
Date Performed: 05/27/2018 Time Performed: 15:07:27 PTAGE: 32 years EKG: Sinus rhythm NORMAL ECG Since PREVIOUS TRACING , no significant change noted PREVIOUS TRACIN06/26/2015 15.32 DOCTOR: Jh Scott Interpretating Date/Time 05/28/2018 17:50:14
[2018-05-28] MEDS: Heparin - SQ 10,000 UNITS/ML Vial SQ SCH (20:44)
[2018-05-28 20:57] VITALS: BP 125/72; PULSE 64; RESP 16; TEMP 99; O2SAT 97
[2018-05-29] MEDS: Ketorolac Inj 30 MG/ML (IVP) Vial IV.PUSH SCH ×3 (00:40→09:47)
[2018-05-29] MEDS ORDERED: Pharmacy Ordered Lab Info OTHER ONE (00:45)
[2018-05-29] MEDS: Vancomycin Inj 2,000 MG in Sodium Chlor 0.9% Inj 500 ML IV.SIG SCH (01:49)
[2018-05-29] MEDS: Piperacil/Tazo 3.375 GM Premix 3.375 GM/50 ML PIGGYBACK IV.SIG SCH ×2 (04:27→09:30)
[2018-05-29] MEDS: Sod Chloride 0.9% Inj 1,000 ML IV.CONT SCH ×2 (04:27→09:30)
[2018-05-29] MEDS: Heparin - SQ 10,000 UNITS/ML Vial SQ SCH (09:47)
[2018-05-29] MEDS ORDERED: Morphine Inj 4 MG/ML Vial IV.PUSH ONE (11:00)
[2018-05-29] MEDS ORDERED: Naproxen 500 MG Tablet PO SCH (11:30)
[2018-05-29] MEDS ORDERED: Vancomycin Inj 2,250 MG in Sodium Chlor 0.9% Inj 500 ML IV.SIG SCH (12:00)
--- NOTE | 2018-05-29 16:06 | P.DS ---
DS: Providers Date of admission: 05/27/18 19:29 Primary care physician: No Primary Care Physician Consults: 05/27/18 20:24 Consult to Hand Surgery Routine Consulting Provider: Donaldo Currie Reason for Consultation: RFA abscess Notified:: Service Spoke with:: Waltjeff Date Notified:: 05/27/18 Time Notified:: 20:55 Ordering Provider: GEETA Brief History from admission: 32-year-old female with a past medical history significant for IV drug abuse ( last use on 03/30/18) and a history of abscesses presents to the emergency department for the evaluation of a right forearm/elbow abscess. The patient reports she has had a fever for approximately 1 week and has been feeling weak and fatigued. Approximately 3 days ago she developed right elbow and forearm pain and an abscess began to form. The area is large, indurated and warm to the touch. She denies any chest pain or shortness of breath. No abdominal pain. No nausea/vomiting/diarrhea. No focal neurologic deficits. DS: Summary Patient was admitted and started on empiric IV antibiotics and pain control. Patient had slow improvement of her symptoms and she was instructed on wound packing and care. Cultures were pending and patient at this time decided to leave AGAINST MEDICAL ADVICE, I discussed with the patient the importance of IV antibiotics until cultures were available and her severe edema improved including risks of progression of abscess/cellulitis/risk of limb loss and . Patient left AGAINST MEDICAL ADVICE. Time Spent with Patient Total time spent providing and/or coordinating discharge services: Quality: VTE Deep Vein Thrombosis/Pulmonary Embolism Present on Admission: No Exam Narrative Exam Narrative: Well-developed well-nourished 32-year-old female Awake alert oriented no acute distress flat affect Heart S1-S2 regular no murmur or gallops clicks Lungs clear bilateral no wheezing or rhonchi Abdomen soft obese nontender positive bowel sounds Extremities right elbow with significant edema and induration of upper arm, area of incision and drainage with packing in place, improved erythema patient is moving elbow well, Results Labs on day of discharge: Labs from last 24 hours 05/29/18 01:00 Vancomycin Trough 6.9 Preliminary micro results at discharge 05/27/18 15:50 Aerobic Blood Culture - Preliminary Blood - Peripheral No growth in 2 days Anaerobic Blood Culture - Preliminary No growth in 2 days 05/27/18 15:45 Aerobic Blood Culture - Preliminary Blood - Peripheral No growth in 2 days Anaerobic Blood Culture - Preliminary No growth in 2 days 05/27/18 22:30 Wound Culture - Preliminary Abscess - Arm Heavy growth normal skin arash No anaerobes isolated Impressions ITS Impressions Chest X-Ray 05/27/18 14:45 CONCLUSION: Negative examination. Elbow CT 05/27/18 14:45 CONCLUSION: 1. Complex fluid collection but represent an abscess in the proximal medial soft tissues of the forearm. 2. No areas of bony destruction are seen. 3. Small 0.5 cm loose body in the elbow joint. Discharge Plan Discharge Disposition Patient Disposition: 07 Against Medical Advice Discharge Condition Condition: Stable Discharge Order Discharge Orders: AMA Discharge (Routine); Ordered 05/29/18 Ordered By: Carol Goff Discharge Details Anticipated Discharge Date: 05/27/18 Physicians Team ED Provider: Basim Tilley ED Midlevel Provider: Celina Marquez Primary Care Provider: Primary Addie Dennis Attending Provider: Carol Goff Other Providers: Donaldo Currie Rxs /Orders / Referrals /Forms Prescriptions: No Action No Known Home Medications RF: 0 Referrals: Primary Care Addie Nguyen [Primary Care Provider] - See Instructions Status ED Status: Left Department Discharge Information Discharge Date/Time: 05/29/18 10:56
[2018-05-30] MEDS ORDERED: Pharmacy Ordered Lab Info OTHER ONE (23:45)
== END 2018-05-29 10:56 | disposition left against medical advice (07) ==
LOC: NEPB 12:47 → NEDA 12:47 → NEPGCP 22:01
PROVIDERS: ADMIT Internal Medicine; ATTEND Internal Medicine